=== PATIENT | female | born 1965 | race Caucasian/White ===

== ENCOUNTER 2017-09-02 14:59 | Inpatient (IN) | payer OTHER ==
[~2017-09-02] VITALS: Ht 165.1 cm; Wt 68.0 kg
[~2017-09-02 14:59] MED LIST: DIOVAN HCT 160-1 TA1 PO; DIOVAN HCT 1601 EAC1 PO; PERCOCET 5-3251 EACH PO
[2017-09-02] MEDS ORDERED: TOPROL XL25 MG PO (15:50)
[2017-09-02] MEDS ORDERED: SYNTHROID50 MCG PO (15:50)
[2017-09-02] MEDS ORDERED: LOSARTAN POTASS50 MG PO (15:57)
[2017-09-02] MEDS ORDERED: SYNTHROID175 MCG PO (15:57)
[2017-09-02] MEDS ORDERED: SIMVASTATIN10 MG PO (15:58)
[2017-09-02] MEDS ORDERED: ATENOLOL50 MG PO (15:58)
[2017-09-05] MEDS ORDERED: PERCOCET 5-3251 EACH PO (09:40)
[2017-09-05] MEDS ORDERED: CALCITRIOL0.5 MCG PO (09:40)
== END 2017-09-05 11:36 | disposition home or self-care (01) | DRG 627 ==
LOC: O/R 09-04 06:05 → SURH 09-04 07:00 → SURG 09-04 15:18
PROVIDERS: Surgery
PROC: 0GTH0ZZ Resection of Right Thyroid Gland Lobe, Open Approach (ICD-10-PCS; principal; 2017-09-04 07:00)
DX: D34 Benign neoplasm of thyroid gland (principal); I11.9 Hypertensive heart disease without heart failure; E03.8 Other specified hypothyroidism

== ENCOUNTER 2017-11-01 10:44 | Outpatient (CLI) | payer OTHER ==
[~2017-11-01 10:44] MED LIST changes: +ATENOLOL50 MG PO; +CALCITRIOL0.5 MCG PO; +LOSARTAN POTASS50 MG PO; +SIMVASTATIN10 MG PO; +SYNTHROID175 MCG PO; +SYNTHROID50 MCG PO; +TOPROL XL25 MG PO
== END 2017-11-01 10:57 | disposition home or self-care (01) ==
LOC: NUCLEAR 10:44
DX: C73 Malignant neoplasm of thyroid gland (principal); E89.0 Postprocedural hypothyroidism
CPT/HCPCS: 79005; A9517

== ENCOUNTER 2017-11-08 12:34 | Outpatient (CLI) | payer OTHER | END 2017-11-08 13:36 | disposition home or self-care (01) | LOC: NUCLEAR 12:34 | DX: C73 Malignant neoplasm of thyroid gland (principal); E89.0 Postprocedural hypothyroidism ==

== ENCOUNTER 2018-12-05 15:26 | Outpatient (CLI) | payer OTHER | END 2018-12-05 15:27 | disposition home or self-care (01) | LOC: NUCLEAR 15:26 | DX: C73 Malignant neoplasm of thyroid gland (principal) | CPT/HCPCS: 78020; A9528; 78018 ==